=== PATIENT | female | born 1995 | race Caucasian/White ===

== ENCOUNTER 2018-11-07 22:23 | Emergency (ER) | payer OTHER ==
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
[2018-11-08 02:54] VITALS: BP 129/68
== END 2018-11-08 01:50 | disposition home or self-care (01) ==
LOC: EEVIPCON 22:23
DX: T76.21XA Adult sexual abuse, suspected, initial encounter (principal); Y92.007 Garden or yard of unspecified non-institutional (private) residence as the place of occurrence of the external cause